=== PATIENT | female | born 1960 | race Caucasian/White ===

== ENCOUNTER 2018-02-15 16:39 | Emergency (ER) | payer OTHER ==
[~2018-02-15] VITALS: Ht 157.5 cm; Wt 78.0 kg
[~2018-02-15 16:39] MED LIST: ERYTHROMYCIN250 M1 PO; HYDROCHLOROTHIA25 GM PO; IBUPROFEN 800800 M1; LISINOPRIL-HCT1 EACH; MULTIGEN; MULTIGEN CAPLET1 CAP PO; NAPROSYN500 MG PO; NORCO 5-325 TA1 EACH PO; ONDANSETRON HCL4 M2 PO; PENICILLIN VK500 M1; PERCOCET 5-3251 EACH PO; PERCOCET PO; PRISTIQ100 MG; PRISTIQ50 M1 PO; PROTONIX40 M1 PO; SYNTHROID125 MCG PO; TYLENOL325 MG PO; VITAMIN E400 UNIT PO
[2018-02-15] MEDS ORDERED: PRISTIQ100 MG PO (16:49)
[2018-02-15] MEDS ORDERED: SYNTHROID50 MCG PO (16:52)
[2018-02-15] MEDS ORDERED: CRESTOR20 MG PO (16:53)
[2018-02-15] MEDS ORDERED: ARIPIPRAZOLE2 MG PO (16:54)
[2018-02-15] MEDS ORDERED: NORCO 5-325 TA1 EAC1 PO (18:22)
[2018-02-15] MEDS ORDERED: FLEXERIL PO (18:22)
[2018-02-15 18:44] VITALS: BP 141/87
== END 2018-02-15 18:45 | disposition home or self-care (01) ==
LOC: M.ERS 16:39
DX: S16.1XXA Strain of muscle, fascia and tendon at neck level, initial encounter (principal); M25.512 Pain in left shoulder; I10 Essential (primary) hypertension; F32.9 Major depressive disorder, single episode, unspecified; K21.9 Gastro-esophageal reflux disease without esophagitis; E78.00 Pure hypercholesterolemia, unspecified; Z86.2 Personal history of diseases of the blood and blood-forming organs and certain disorders involving the immune mechanism; Z88.1 Allergy status to other antibiotic agents; Z88.8 Allergy status to other drugs, medicaments and biological substances; V43.52XA Car driver injured in collision with other type car in traffic accident, initial encounter; Y93.I9 Activity, other involving external motion; Y92.89 Other specified places as the place of occurrence of the external cause; Y99.8 Other external cause status